=== PATIENT | female | born 1975 | race Asian ===

== ENCOUNTER 2018-07-28 12:51 | Emergency (ER) | payer OTHER ==
[~2018-07-28] VITALS: Ht 165.1 cm; Wt 46.7 kg
[2018-07-28 12:46] VITALS: BP 132/84
--- NOTE | 2018-07-28 12:48 | NUR ---
ED Nurse Note: pt brought by [id number] from [facility] due to slipped and fell injury. no head injury reported. pt c/o tail bone pain. AAO x4. respirations even and non-labored noted. skin warm to touch. friend at the bed side. will wait for the further order.
[2018-07-28 14:46] LABS: APPEARANCE,URINE CLEAR; BILIRUBIN, URINE NEGATIVE (NEGATIVE); COLOR,URINE PALE YELLOW; GLUCOSE, URINE (UA) NEGATIVE (NEGATIVE); KETONES,URINE 1+ (NEGATIVE); LEUKOCYTE ESTERASE ,URINE NEGATIVE (NEGATIVE); NITRITE,URINE NEGATIVE (NEGATIVE); PH,URINE 7 (4.5-8.0); PROTEIN,URINE NEGATIVE (NEGATIVE); UROBILINOGEN,URINE NORMAL MG/DL (0.0-1.0)
--- NOTE | 2018-07-28 14:49 | Emergency Room Report ---
History of Present Illness General Chief Complaint: Multiple Trauma/Fall Source: Patient (Danisha Bautista DO) Present Illness HPI The patient slipped and fell on a waxed floor onto her tailbone. She has pain in her buttocks and tailbone. She denies any other injury or pain. She did not have any head trauma. She denies chest pain or shortness of breath. She denies other pain in her back. She denies abdominal pain. She has no other injuries. (Danisha Bautista DO) Allergies: Coded Allergies: No Known Allergies (Unverified , 07/28/18) Patient History Past Medical History: none, see triage record Social History: Denies: smoking, alcohol use, drug use Reviewed Nursing Documentation: PMH: Agreed; PSxH: Agreed (Danisha Bautista DO) Nursing Documentation-PMH Past Medical History: No Stated History (Danisha Bautista DO) Review of Systems All Other Systems: negative except mentioned in HPI (Danisha Bautista DO) Physical Exam Vital Signs Date Time Temp Pulse Resp B/P (MAP) Pulse Ox O2 Delivery O2 Flow Rate FiO2 07/28/18 12:37 98.1 60 18 132/84 (100) 99 Room Air Sp02 EP Interpretation: reviewed, normal General Appearance: no apparent distress, alert, GCS 15, non-toxic Head: normocephalic, atraumatic Eyes: bilateral eye normal inspection, bilateral eye PERRL ENT: hearing grossly normal, normal pharynx, no angioedema, normal voice Neck: full range of motion, supple/symm/no masses Respiratory: chest non-tender, lungs clear, normal breath sounds, no respiratory distress, no retraction, no accessory muscle use, speaking full sentences Cardiovascular #1: regular rate, rhythm, no edema Gastrointestinal: normal bowel sounds, non tender, soft, non-distended, no guarding, no rebound Rectal: deferred Musculoskeletal: normal range of motion, tender - TTP on sacrum Neurologic: alert, oriented x3, responsive, motor strength/tone normal, sensory intact, speech normal Psychiatric: judgement/insight normal, memory normal, mood/affect normal, no suicidal/homicidal ideation Skin: normal color, no rash, warm/dry, well hydrated (Danisha Bautista DO) Medical Decision Making Diagnostic Impression: Primary Impression: Sacral fracture Additional Impression: Fall ER Course Patient presented after a fall with a sacral fracture. CT imaging of the pelvis showed transverse sacral fracture S3. Patient will be transferred to [facility] for higher level of care. Patient was discussed with trauma surgeon at [facility] who agreed except the patient is a transfer. Patient appears to be stable hemodynamically. Labs Test 07/28/18 14:25 07/28/18 18:00 Urine Color Pale yellow Urine Appearance Clear Urine pH 7 (4.5-8.0) Urine Specific [place] 1.010 (1.005-1.035) Urine Protein Negative (NEGATIVE) Urine Glucose (UA) Negative (NEGATIVE) Urine Ketones 1+ (NEGATIVE) Urine Blood Negative (NEGATIVE) Urine Nitrite Negative (NEGATIVE) Urine Bilirubin Negative (NEGATIVE) Urine Urobilinogen Normal MG/DL (0.0-1.0) Urine Leukocyte Esterase Negative (NEGATIVE) Urine HCG, Qualitative Negative (NEGATIVE) White Blood Count 12.4 K/UL (4.8-10.8) Red Blood Count 4.62 M/UL (4.20-5.40) Hemoglobin 14.4 G/DL (12.0-16.0) Hematocrit 42.0 % (37.0-47.0) Mean Corpuscular Volume 91 FL (80-99) Mean Corpuscular Hemoglobin 31.1 PG (27.0-31.0) Mean Corpuscular Hemoglobin Concent 34.2 G/DL (32.0-36.0) Red Cell Distribution Width 11.0 % (11.6-14.8) Platelet Count 183 K/UL (150-450) Mean Platelet Volume 6.9 FL (6.5-10.1) Neutrophils (%) (Auto) 84.3 % (45.0-75.0) Lymphocytes (%) (Auto) 12.4 % (20.0-45.0) Monocytes (%) (Auto) 3.0 % (1.0-10.0) Eosinophils (%) (Auto) 0.0 % (0.0-3.0) Basophils (%) (Auto) 0.3 % (0.0-2.0) Prothrombin Time 10.3 SEC (9.30-11.50) Prothromb Time International Ratio 1.0 (0.9-1.1) Activated Partial Thromboplast Time 28 SEC (23-33) Sodium Level 139 MMOL/L (136-145) Potassium Level 3.5 MMOL/L (3.5-5.1) Chloride Level 102 MMOL/L (98-107) Carbon Dioxide Level 27 MMOL/L (21-32) Anion Gap 10 mmol/L (5-15) Blood Urea Nitrogen 8 mg/dL (7-18) Creatinine 0.5 MG/DL (0.55-1.30) Estimat Glomerular Filtration Rate > 60 mL/min (>60) Glucose Level 94 MG/DL (74-106) Calcium Level 8.7 MG/DL (8.5-10.1) Total Bilirubin 0.5 MG/DL (0.2-1.0) Aspartate Amino Transf (AST/SGOT) 23 U/L (15-37) Alanine Aminotransferase (ALT/SGPT) 30 U/L (12-78) Alkaline Phosphatase 28 U/L (46-116) Total Protein 7.8 G/DL (6.4-8.2) Albumin 4.4 G/DL (3.4-5.0) Globulin 3.4 g/dL Albumin/Globulin Ratio 1.3 (1.0-2.7) (Sohan Garcia MD) Last Vital Signs Date Time Temp Pulse Resp B/P (MAP) Pulse Ox O2 Delivery O2 Flow Rate FiO2 07/28/18 12:46 98.1 60 18 132/84 99 Room Air ([facility]) Status: improved (Sohan Garcia MD) Disposition: XFER SHT-TRM HOSP Condition: Stable Referrals: [facility],REFERRING (PCP) [facility] Jul 28, 2018 14:49 Sohan Garcia MD Jul 28, 2018 19:03
[2018-07-28] MEDS ORDERED: HYDROcodone/Acetamin 5/325 tab ORAL ONE (15:00)
--- NOTE | 2018-07-28 15:26 | NUR ---
ED Nurse Note: Patient returned from CT scan. Bed in lowest position. Addendum: 07/28/18 at 1543 by MIN Reports no numbness or thingling in BLE. Reports no loss of bladder or bowel control.
[2018-07-28 15:38] VITALS: BP 129/86
--- NOTE | 2018-07-28 15:44 | NUR ---
ED Nurse Note: Patient resting in bed, answering cell phone. Applied ice pack to the area.
--- NOTE | 2018-07-28 15:48 | Diagnostic Imaging Report ---
Indication: Pain, status post fall Technique: Noncontrast spiral acquisitions obtained through the pelvis. Multiplanar reconstructions generated. Total dose length product 370.65 mGycm. CTDIvol(s) 12.35 mGy. Dose reduction achieved using automated exposure control Comparison: none Findings: There is a transverse fracture of the sacrum at the level of S3. This demonstrates slight buckling of the anterior cortex, and approximately 2 mm anterior displacement of the posterior wall of the main body. No other sacral fracture lines are demonstrated. No presacral soft tissue swelling or pelvic hematoma demonstrated. No evidence of subcutaneous hematoma. The included pelvic viscera are unremarkable. There is a small amount of free pelvic fluid Impression: Positive for minimally displaced transverse sacral fracture through S3, confirming findings on recent plain radiograph Free pelvic fluid, presumably physiologic The CT scanner at [facility] is accredited by the [employer] and the scans are performed using protocols designed to limit radiation exposure to as low as reasonably achievable to attain images of sufficient resolution adequate for diagnostic evaluation.
--- NOTE | 2018-07-28 15:48 | Diagnostic Imaging Report ---
Indication: Trauma, pain in buttocks and tailbone status post fall Technique: 3 views of the lumbar spine Comparison: None Findings: There is a minimally displaced transverse fracture of the sacrum at the S3 level. This is best appreciated on the lateral view. The lumbar bony alignment is normal. Vertebral body heights are preserved. The disc spaces are preserved. The pedicles are intact. Sacral arches are preserved. Sacroiliac joint spaces are preserved. The included extra spinal soft tissues are unremarkable. Impression: Positive for transverse minimally displaced sacral fracture No acute lumbar spine bony trauma
--- NOTE | 2018-07-28 15:50 | Diagnostic Imaging Report ---
Indication: Trauma, pain, fell on tailbone Technique: 3 views of the sacrum and coccyx Comparison: none Findings: There is a transverse fracture of the sacrum through the S3 segment, best appreciated on the AP view and better appreciated on the sacral view of the lumbar spine series performed simultaneously. This is minimally displaced. No other acute fractures. Sacroiliac joint spaces are preserved. Sacral arches are preserved. Impression: Positive for transverse minimally displaced sacral fracture Findings previously discussed by phone with Dr. Umana in the emergency room
[2018-07-28 17:47] VITALS: BP 133/78
--- NOTE | 2018-07-28 18:04 | NUR ---
ED Nurse Note: Patient ok to eat at this time per Dr. Garcia. Provided juice. Tolerating oral intake wihtout problem.
[2018-07-28 18:11] LABS: BASOPHILS % (AUTO) 0.3 % (0.0-2.0); HEMOGLOBIN 14.4 G/DL (12.0-16.0); LYMPHOCYTES % (AUTO) 12.4 % (20.0-45.0); MEAN CORPUSCULAR VOLUME 91 FL (80-99); NEUTROPHILS % (AUTO) 84.3 % (45.0-75.0); PLATELET COUNT 183 K/UL (150-450); RED BLOOD COUNT 4.62 M/UL (4.20-5.40); WHITE BLOOD COUNT 12.4 K/UL (4.8-10.8)
[2018-07-28 18:21] LABS: ANION GAP 10 mmol/L (5-15); BLOOD UREA NITROGEN 8 mg/dL (7-18); CALCIUM 8.7 MG/DL (8.5-10.1); CARBON DIOXIDE 27 MMOL/L (21-32); CHLORIDE 102 MMOL/L (98-107); CREATININE 0.5 MG/DL (0.55-1.30); POTASSIUM 3.5 MMOL/L (3.5-5.1); SODIUM 139 MMOL/L (136-145)
[2018-07-28 18:26] LABS: ALANINE AMINOTRANSFERASE 30 U/L (12-78); ALBUMIN 4.4 G/DL (3.4-5.0); ALBUMIN/GLOBULIN RATIO 1.3 (1.0-2.7); ALKALINE PHOSPHATASE 28 U/L (46-116); ASPARTATE AMINO TRANSFERASE 23 U/L (15-37); BILIRUBIN,TOTAL 0.5 MG/DL (0.2-1.0)
--- NOTE | 2018-07-28 18:48 | NUR ---
ED Nurse Note: Report given to ABILIO Burnham at [facility].
--- NOTE | 2018-07-28 19:07 | NUR ---
HAND-OFF: Report given to ABILIO Romano.
[2018-07-28 19:45] VITALS: BP 119/72
--- NOTE | 2018-07-28 19:45 | NUR ---
ER DISCHARGE NOTE: Patient is being transferred to [facility] for a HLOC, at time of departure pating reports of 5/10 pain in her back, patient is alert and oriented x4, pattient is acocmpanied by spouse. report given to ABILIO Burnham
== END 2018-07-28 19:45 | disposition short-term general hospital (02) ==
LOC: EMR 13:10
DX: S32.16XA Type 3 fracture of sacrum, initial encounter for closed fracture (principal); W01.0XXA Fall on same level from slipping, tripping and stumbling without subsequent striking against object, initial encounter; Y92.9 Unspecified place or not applicable
CPT/HCPCS: 36415; 72020; 72192; 72220; 80053; 81003; 81025; 85025; 85610; 85730; 99285